=== PATIENT | female | born 1985 | race Two or more races ===

== ENCOUNTER 2023-07-22 18:26 | Emergency (ER) | payer OTHER ==
[~2023-07-22] VITALS: Ht 175.3 cm; Wt 63.5 kg
[2023-07-23] MEDS ORDERED: ONDANSETRON HCL4 MG PO (00:25)
[2023-07-23] MEDS ORDERED: PEPCID AC20 MG PO (00:25)
[2023-07-23] MEDS ORDERED: TRAMADOL HCL50 MG PO (00:25)
== END 2023-07-23 01:04 | disposition home or self-care (01) ==
LOC: ER 18:26
PROVIDERS: Nurse Practitioner Family
DX: O20.0 Threatened abortion (principal); Z3A.09 9 weeks gestation of pregnancy